=== PATIENT | female | born 1965 | race Caucasian/White ===

== ENCOUNTER 2019-01-18 13:24 | Outpatient (RCR) | payer MEDICARE, MEDICAID, SELFPAY | END 2019-01-18 23:59 | disposition home or self-care (01) | LOC: ANHAUDIO 13:24 | PROVIDERS: PCP Internal Medicine; Visit Provider Internal Medicine | DX: Z46.1 Encounter for fitting and adjustment of hearing aid (principal) | CPT/HCPCS: 99199 ==

== ENCOUNTER 2021-11-24 10:41 | Outpatient (CLI) | payer MEDICARE, MEDICAID, SELFPAY | END 2021-11-24 10:42 | disposition home or self-care (01) | LOC: ANHAUDIO 10:43 | PROVIDERS: PCP Internal Medicine; Visit Provider Internal Medicine | DX: H91.93 Unspecified hearing loss, bilateral (principal) | CPT/HCPCS: 99199 ==

== ENCOUNTER 2021-12-16 13:17 | Outpatient (CLI) | payer MEDICARE, MEDICAID, SELFPAY | END 2021-12-16 13:18 | disposition home or self-care (01) | LOC: ANHAUDIO 13:18 | PROVIDERS: PCP Internal Medicine; Visit Provider Internal Medicine | DX: H90.3 Sensorineural hearing loss, bilateral (principal) | CPT/HCPCS: 92557; 92567 ==